=== PATIENT | male | born 1975 | race Caucasian/White ===

== ENCOUNTER 2017-07-06 08:49 | Emergency (ER) | payer BC, OTHER ==
[~2017-07-06] VITALS: Ht 175.3 cm; Wt 80.0 kg
[2017-07-06 08:53] VITALS: BP 148/83; PULSE 77; RESP 16; TEMP 99; O2SAT 95
--- NOTE | 2017-07-06 09:45 | PD ---
HPI Chief Complaint: Musculoskeletal Complaint Time Seen by Provider: 09:20 Travel History International Travel<30 days: No Contact w/Intl Traveler<30days: No Traveled to known affect area: No History of Present Illness HPI This is a 41-year-old female with right hand pain and swelling 3 days. He cannot recall a specific injury. 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 He denies fever or chills. No redness or warmth of the extremity. Pain is localized over the third MCP joint. Pain is exacerbated by flexion and extension of the third digit. Slightly relieved with rest. PFSH Past Medical History Medical History: Denies Significant Hx Diminished Hearing: No Influenza Vaccination: No Past Surgical History Other Surgery: Yes (LEFT WRIST ARTERY REPAIR) Social History Alcohol Use: Yes (24 BEERS PER WEEK) Tobacco Use: No Substance Use: No Allergies-Medications (Allergen,Severity, Reaction): Coded Allergies: No Known Allergies (Verified Adverse Reaction, Unknown, 07/06/17) Reported Meds & Prescriptions Reported Meds & Active Scripts Active No Active Prescriptions or Reported Medications Review of Systems Except as stated in HPI: all other systems reviewed are Neg Physical Exam Narrative GENERAL: Alert and well-appearing 42-year-old SKIN: Warm and dry. No warmth or erythema HEAD: Normocephalic. EYES: No injection or drainage. NECK: Supple, trachea midline. No JVD or lymphadenopathy. MUSCULOSKELETAL: No cyanosis. Right hand: Mild swelling localized over the dorsal aspect of the third MCP. No warmth or erythema. No puncture wounds or open sores. No obvious deformity. Patient is able to flex and extend the digit. Normal sensation. Brisk cap refill. Data Data Last Documented VS Vital Signs Date Time Temp Pulse Resp B/P (MAP) Pulse Ox O2 Delivery O2 Flow Rate FiO2 07/06/17 08:53 99.0 77 16 148/83 (104) 95 Orders Orders Hand, Complete ([id number]) (07/06/17 ) [facility] Medical Decision Making Medical Screen Exam Complete: Yes Emergency Medical Condition: Yes Differential Diagnosis Ligamental injury, fracture, contusion, arthritis Narrative Course 42-year-old male here with right hand pain and swelling 3 days. He reports symptom improvement with high-dose NSAIDs. On exam the patient has mild swelling and tenderness over the third MCP joint. No evidence of infection. X- ray no fracture, dislocation, radiopaque foreign body. Patient will be treated with high-dose NSAIDs for several days. She can to follow-up with his primary doctor. He was given the name and number to a hand surgeon should he develop any complications. Diagnosis Primary Impression: Right hand pain Referrals: Heidi Duggan MD Primary Care Physician Additional Instructions: Ibuprofen 800 mg every 6 hours for pain and swelling. Avoid heavy lifting and strenuous activity. Follow-up with her primary doctor for recheck Scripts Ibuprofen (Ibuprofen) 800 Mg Tab 800 MG PO Q6HR Y for PAIN, #40 TAB 0 Refills Prov: Jen Silverio 07/06/17 Disposition: 01 DISCHARGE HOME Condition: Stable Jen Silverio Jul 06, 2017 09:45
--- NOTE | 2017-07-06 10:15 | RADRPT ---
EXAM DATE/TIME: 07/06/2017 10:02 [place] COMPARISON: No previous studies available for comparison. INDICATIONS : Right hand swelling, with pain localized to the third metacarpel. MEDICAL HISTORY : None. SURGICAL HISTORY : None. ENCOUNTER: Initial ACUITY: 1 day PAIN SCORE: 5/10 LOCATION: Right hand FINDINGS: Soft tissue swelling. No fracture. The carpal bones appear intact. The interphalangeal and metacar pophalangeal joints are intact. Bony mineralization is normal. CONCLUSION: Soft tissue swelling, no fracture Mark Gilbert MD FACR on July 06, 2017 at 10:13 Board Certified Radiologist. This report was verified electronically.
[2017-07-06] MEDS ORDERED: IBUP1TAB7 PO (10:20)
== END 2017-07-06 10:28 | disposition home or self-care (01) ==
LOC: PHEFT 08:49
DX: M79.641 Pain in right hand (principal)
CPT/HCPCS: 73130; 99283